=== PATIENT | female | born 1950 | race Caucasian/White ===

== ENCOUNTER → 2016-07-13 | Outpatient (REF) | payer MEDICARE, OTHER | LOC: M LAB REF 12:08 | PROVIDERS: ATTEND Nurse Practitioner Adult Health | DX: R10.2 Pelvic and perineal pain (principal) ==

== ENCOUNTER → 2016-08-11 | Outpatient (CLI) | payer MEDICARE, OTHER ==
--- NOTE | 2016-08-11 17:24 | REP ---
LEFT FOOT: REASON: Pain. PRIORS: None. FINDINGS: The joint spaces are symmetric and relatively well maintained. There is no evidence of acute fracture or destructive osseous lesion. Mild age related changes seen involving the midfoot. IMPRESSION: Negative. Signed by Leroy Dickey DO 08/11/2016 05:59 P
== END ==
LOC: M WUC 09:50
PROVIDERS: ATTEND Nurse Practitioner Adult Health
DX: M79.672 Pain in left foot (principal)

== ENCOUNTER → 2017-09-28 | Outpatient (CLI) | payer MEDICARE, OTHER ==
[2017-09-28 13:05] LABS: FERRITIN 43 NG/ML (8-252); IRON (FE) 65 UG/DL (50-170); PERCENT SATURATION 19.5 % (13.2-45.0); TOTAL IRON BINDING CAPACITY 333 UG/DL (250-450)
[2017-09-28 14:57] LABS: BASO # 0.1 10^3/uL (0.0-0.2); BASO % 1.1 % (0.0-1.0); EOS # 0.2 10^3/uL (0.0-0.50); EOS % 3.1 % (0.0-3.0); HEMATOCRIT 43.8 % (36.0-47.0); HEMOGLOBIN 14.8 g/dl (12.0-15.5); IMMATURE GRANULOCYTE % 0.2 % (0-3.0); LYMPH # 1.6 10^3/uL (1.5-4.5); LYMPH % 28.6 % (24.0-44.0); MEAN CORPUSCULAR HEMOGLOBIN 28.9 pg (27.0-33.0); MEAN CORPUSCULAR HGB CONC 33.8 g/dl (32.0-36.5); MEAN CORPUSCULAR VOLUME 85.5 fl (80.0-96.0); MONO # 0.4 10^3/uL (0.0-0.8); MONO % 6.3 % (0.0-5.0); NEUTROPHILS # 3.4 10^3/uL (1.8-7.7); NEUTROPHILS % 60.7 % (36.0-66.0); PLATELET COUNT, AUTOMATED 258 10^3/uL (150-450); RED BLOOD COUNT 5.12 10^6/uL (4.00-5.40); RED CELL DISTRIBUTION WIDTH 13.4 % (11.5-14.5); WHITE BLOOD COUNT 5.5 10^3/uL (4.0-10.0)
== END ==
LOC: M WUC 10:00
DX: Z01.818 Encounter for other preprocedural examination (principal); D63.8 Anemia in other chronic diseases classified elsewhere; M17.10 Unilateral primary osteoarthritis, unspecified knee; M25.561 Pain in right knee
CPT/HCPCS: 82040

== ENCOUNTER 2018-10-22 07:11 | Day surgery (SDC) | payer MEDICARE, OTHER ==
[~2018-10-22] VITALS: Ht 165.1 cm; Wt 67.0 kg
[~2018-10-22 07:11] MED LIST: CALC600T5 PO; CALCCAP4 PO; D3 S1CAP3 PO; EQL50CAP4 PO; LIDOCAINE 2% INJ 100 MG/5 ML SDV (FOR ANES.) As Ordered ONE; MAGN400C2 PO; NS 1,000 ML IV ONE; OMEGCAP9 PO; PROPOFOL 200 MG/20 ML VIAL As Ordered ONE; SYST1SOL4 OU; [UNRECOGNIZED DRUG - OTHER] PO
--- NOTE | 2018-10-22 08:27 | ROOR ---
Patient Name: Rodrigo Murray Procedure Date: 10/22/2018 8:01 AM Date of : 1950 Age: 68 Room: [facility] Gender: Female Note Status: Finalized Procedure: Colonoscopy Indications: High risk colon cancer surveillance: Personal history of non-advanced adenoma, Last colonoscopy: February 2013 Providers: Bruno Jean MD Referring MD: Fernanda Hdz NP Requesting Provider: Medicines: Monitored Anesthesia Care Complications: No immediate complications. Procedure: Pre-Anesthesia Assessment: - Prior to the procedure, a History and Physical was performed, and patient medications and allergies were reviewed. The patient is competent. The risks and benefits of the procedure and the sedation options and risks were discussed with the patient. All questions were answered and informed consent was obtained. Patient identification and proposed procedure were verified by the physician, the nurse and the lost charge card clerk in the procedure room. Mental Status Examination: alert and oriented. Airway Examination: normal oropharyngeal airway and neck mobility. CV Examination: regular rate and rhythm. Prophylactic Antibiotics: The patient does not require prophylactic antibiotics. Prior Anticoagulants: The patient has taken no previous anticoagulant or antiplatelet agents. ASA Grade Assessment: I - A normal, healthy patient. After reviewing the risks and benefits, the patient was deemed in satisfactory condition to undergo the procedure. The anesthesia plan was to use monitored anesthesia care (MAC). Immediately prior to administration of medications, the patient was re-assessed for adequacy to receive sedatives. The heart rate, respiratory rate, oxygen saturations, blood pressure, adequacy of pulmonary ventilation, and response to care were monitored throughout the procedure. The physical status of the patient was re-assessed after the procedure. The Colonoscope was introduced through the anus and advanced to the cecum, identified by appendiceal orifice and ileocecal valve. The colonoscopy was performed without difficulty. The patient tolerated the procedure well. The quality of the bowel preparation was excellent. Findings: The perianal and digital rectal examinations were normal. The colon (entire examined portion) appeared normal. Impression: - The entire examined colon is normal. - No specimens collected. Recommendation: - Discharge patient to home. - Resume previous diet. - Continue present medications. - Repeat colonoscopy in 5 years for surveillance. Bruno Jean MD Bruno Jean MD 10/22/2018 8:27:18 AM Electronically signed by Bruno Jean MD Number of Addenda: 0 Note Initiated On: 10/22/2018 8:01 AM Estimated Blood Loss: Estimated blood loss: none.
[2018-10-22 08:57] VITALS: BP 131/73
== END 2018-10-22 08:57 | disposition home or self-care (01) ==
LOC: M OPP 07:11
PROVIDERS: ATTEND Surgery
DX: Z12.11 Encounter for screening for malignant neoplasm of colon (principal); Z86.010 Personal history of colon polyps; Z88.2 Allergy status to sulfonamides

== ENCOUNTER → 2021-07-19 | Outpatient (CLI) | payer MEDICARE, OTHER ==
[~2021-07-19] MED LIST changes: -CALC600T5 PO; +CALC600T61 PO; -LIDOCAINE 2% INJ 100 MG/5 ML SDV (FOR ANES.) As Ordered ONE; -NS 1,000 ML IV ONE; -PROPOFOL 200 MG/20 ML VIAL As Ordered ONE
== END ==
LOC: M WUC 14:48
PROVIDERS: ATTEND Nurse Practitioner Adult Health
DX: M25.812 Other specified joint disorders, left shoulder (principal)

== ENCOUNTER → 2023-08-02 | Outpatient (REF) | payer MEDICARE ==
[~2023-08-02] MED LIST changes: +DIPH-448 PO; -EQL50CAP4 PO
[2023-08-02 13:35] LABS: HEMATOCRIT 38.4 % (36.0-47.0)
[2023-08-02 13:38] LABS: FERRITIN 287.1 NG/ML (7.3-270.7)
[2023-08-02 13:45] LABS: TOTAL IRON BINDING CAPACITY 274 UG/DL (250-425)
[2023-08-02 13:47] LABS: IRON (FE) 32 UG/DL (50-170); PERCENT SATURATION 11.7 % (13.2-45.0)
[2023-08-02 14:45] LABS: HEPATITIS B CORE ANTIBODY IGM NEGATIVE (NEGATIVE)
[2023-08-02 14:46] LABS: HEPATITIS C VIRUS ABY INDEX < 0.02 INDEX (<0.8)
[2023-08-03 14:09] LABS: ANTINUCLEAR ANTIBODIES DIRECT Negative (Negative)
== END ==
LOC: M LAB REF 11:50
PROVIDERS: ATTEND Nurse Practitioner Adult Health
DX: R94.5 Abnormal results of liver function studies (principal); D50.9 Iron deficiency anemia, unspecified

== ENCOUNTER → 2023-08-08 | Outpatient (REF) | payer MEDICARE ==
[2023-08-08 13:39] LABS: LIPASE 23 U/L (12-53)
[2023-08-08 13:41] LABS: AMYLASE 25 U/L (30-118)
== END ==
LOC: M LAB REF 12:28
PROVIDERS: ATTEND Nurse Practitioner Adult Health
DX: R94.5 Abnormal results of liver function studies (principal)

== ENCOUNTER → 2023-08-14 | Outpatient (CLI) | payer MEDICARE | LOC: M WUC 12:02 | PROVIDERS: ATTEND Nurse Practitioner Adult Health | DX: R06.02 Shortness of breath (principal) ==

== ENCOUNTER → 2023-08-29 | Outpatient (CLI) | payer MEDICARE | LOC: M WUC 13:42 | PROVIDERS: ATTEND Nurse Practitioner Adult Health | DX: R06.02 Shortness of breath (principal) ==

== ENCOUNTER → 2023-09-13 | Outpatient (REF) | payer MEDICARE | LOC: M LAB REF 12:45 | PROVIDERS: ATTEND Nurse Practitioner Adult Health | DX: R94.5 Abnormal results of liver function studies (principal) ==

== ENCOUNTER → 2023-11-21 | Outpatient (CLI) | payer MEDICARE ==
[2023-11-21 14:56] LABS: RHEUMATOID FACTOR QUANT < 3.5 IU/ML (<14)
[2023-11-21 15:09] LABS: HEPATITIS B SURFACE ANTIGEN NEGATIVE (NEGATIVE)
[2023-11-21 15:30] LABS: HEPATITIS C VIRUS ABY INDEX 0.03 INDEX (<0.8)
[2023-11-21 15:31] LABS: HEPATITIS B CORE ANTIBODY IGM NEGATIVE (NEGATIVE)
[2023-11-23 00:52] LABS: CYCLIC CITRULLINATED PEPTIDE < 16 UNITS (<20)
[2023-11-23 11:03] LABS: ANA PATTERN Nuclear, Speckled (NEGATIVE); ANA SCREEN, IFA POSITIVE (NEGATIVE); ANA TITER 1:40 titer (<1:40)
[2023-11-24 18:22] LABS: LYME TOTAL ANTIBODY CIA <= 0.90 Index (<=0.90)
== END ==
LOC: M PLAIMG 12:08
PROVIDERS: ATTEND Nurse Practitioner Adult Health
DX: Z01.89 Encounter for other specified special examinations (principal); M19.031 Primary osteoarthritis, right wrist

== ENCOUNTER → 2024-01-10 | Outpatient (REF) | payer MEDICARE ==
[2024-01-14 14:14] LABS: FERRITIN 110.2 NG/ML (7.3-270.7)
== END ==
LOC: M LAB REF 13:35
PROVIDERS: ATTEND Nurse Practitioner Adult Health
DX: R71.8 Other abnormality of red blood cells (principal)

== ENCOUNTER → 2024-02-22 | Outpatient (REF) | payer MEDICARE ==
[2024-02-22 15:07] LABS: HEPATITIS B SURFACE ANTIBODY NEGATIVE (POSITIVE)
[2024-02-22 15:19] LABS: HEPATITIS B SURFACE ANTIGEN NEGATIVE (NEGATIVE)
[2024-02-22 15:41] LABS: HEPATITIS B CORE ANTIBODY IGM NEGATIVE (NEGATIVE); HEPATITIS C VIRUS ABY INDEX < 0.02 INDEX (<0.8)
== END ==
LOC: M LAB REF 12:26
PROVIDERS: ATTEND Nurse Practitioner Adult Health
DX: M19.90 Unspecified osteoarthritis, unspecified site (principal); Z79.899 Other long term (current) drug therapy; Z11.59 Encounter for screening for other viral diseases

== ENCOUNTER → 2024-07-14 | Outpatient (CLI) | payer MEDICARE ==
[2024-07-14 13:53] LABS: BLOOD UREA NITROGEN 12 MG/DL (9-23); CALCIUM LEVEL 10.1 MG/DL (8.3-10.6); CARBON DIOXIDE LEVEL 31 MMOL/L (20-31); CHLORIDE LEVEL 104 MMOL/L (98-107); CREATININE FOR GFR 0.69 MG/DL (0.55-1.30); GLOMERULAR FILTRATION RATE > 60.0 (>39); GLUCOSE, FASTING 85 MG/DL (74-106); SODIUM LEVEL 142 MMOL/L (136-145)
== END ==
LOC: M LAB 12:15
PROVIDERS: ATTEND Nurse Practitioner Family
DX: I72.2 Aneurysm of renal artery (principal)

== ENCOUNTER → 2024-07-17 | Outpatient (CLI) | payer MEDICARE ==
[~2024-07-17] MED LIST changes: +ISOVUE-370 76% 100ML VIAL As Ordered ONE
== END ==
LOC: M RAD 13:26
PROVIDERS: ATTEND Nurse Practitioner Family
DX: I72.2 Aneurysm of renal artery (principal)
CPT/HCPCS: 71275; 74174; Q9967

== ENCOUNTER → 2024-07-28 | Outpatient (REF) | payer MEDICARE ==
[~2024-07-28] MED LIST changes: -ISOVUE-370 76% 100ML VIAL As Ordered ONE
== END ==
LOC: M LAB REF 12:19
PROVIDERS: ATTEND Nurse Practitioner Adult Health
DX: R71.8 Other abnormality of red blood cells (principal)

== ENCOUNTER 2024-12-12 11:23 | Emergency (ER) | payer MEDICARE ==
[~2024-12-12] VITALS: Ht 165.1 cm; Wt 66.1 kg
[2024-12-12 11:36] VITALS: TEMP 98.1
[2024-12-12 12:10] LABS: BASO # 0.1 10^3/uL (0.0-0.2); BASO % 0.5 % (0.0-1.0); EOS # 0.0 10^3/uL (0.0-0.5); EOS % 0.4 % (0.0-3.0); LYMPH # 1.1 10^3/uL (1.5-5.0); LYMPH % 10.7 % (24.0-44.0); MONO # 1.0 10^3/uL (0.0-0.8); MONO % 10.3 % (2.0-8.0); NEUTROPHILS # 7.8 10^3/uL (1.5-8.5); NEUTROPHILS % 77.9 % (36.0-66.0); PLATELET COUNT, AUTOMATED 203 10^3/uL (150-450)
[2024-12-12 12:29] LABS: CK-MB VALUE MASS 2.2 NG/ML (<3.6)
[2024-12-12 12:31] LABS: ALT/SGPT 35.0 U/L (7.0-40); AST/SGOT 34.0 U/L (<34); CALCIUM LEVEL 10.1 MG/DL (8.3-10.6); CARBON DIOXIDE LEVEL 31.0 MMOL/L (20-31); CHLORIDE LEVEL 100.0 MMOL/L (98-107); CPK CREATINE PHOSPHOKINASE 61.0 U/L (34-145); CREATININE FOR GFR 0.8 MG/DL (0.55-1.30); GLOMERULAR FILTRATION RATE 76.3 (>39); MB/CK RELATIVE INDEX 3.6 (< OR =4); POTASSIUM SERUM 4.7 MMOL/L (3.5-5.1); SODIUM LEVEL 141.0 MMOL/L (136-145)
[2024-12-12] MEDS: METOPROLOL 5 MG/5 ML VIAL IV SCH (12:33)
[2024-12-12] MEDS: METOPROLOL TART 25 MG TABLET PO ONE (12:37)
[2024-12-12 12:48] VITALS: BP 152/99
[2024-12-12 12:48] LABS: MAGNESIUM LEVEL 1.8 MG/DL (1.8-2.4)
[2024-12-12 12:50] LABS: INR 0.9
[2024-12-12 12:52] LABS: FREE T4 1.09 NG/DL (0.89-1.76)
[2024-12-12] MEDS ORDERED: ISOVUE-370 76% 100 ML VIAL As Ordered ONE (13:29)
[2024-12-12 13:33] LABS: CK-MB VALUE MASS 2.0 NG/ML (<3.6)
[2024-12-12 13:41] LABS: CPK CREATINE PHOSPHOKINASE 60.0 U/L (34-145); MB/CK RELATIVE INDEX 3.33 (< OR =4)
[2024-12-12] MEDS ORDERED: D3 S1CAP3 PO (14:43)
[2024-12-12] MEDS ORDERED: METH2.5T48 PO (14:43)
[2024-12-12] MEDS ORDERED: IBAN150T10 PO (14:43)
[2024-12-12] MEDS ORDERED: LEUC5TAB PO (14:43)
[2024-12-12] MEDS ORDERED: DULO1CAP6 PO (14:43)
[2024-12-12 14:45] VITALS: BP 124/73; O2SAT 96
[2024-12-12] MEDS ORDERED: HOME MED LIST COMPLETE! XX SCH (14:50)
[2024-12-12] MEDS ORDERED: METO25TA4 PO (14:52)
[2024-12-12] MEDS: APIXABAN 5 MG TAB PO ONE (14:52)
[2024-12-12] MEDS ORDERED: ELIQ5TAB PO (14:52)
== END 2024-12-12 15:05 | disposition home or self-care (01) ==
LOC: M ED 11:23
DX: I48.91 Unspecified atrial fibrillation (principal); R07.9 Chest pain, unspecified; J91.8 Pleural effusion in other conditions classified elsewhere; F10.10 Alcohol abuse, uncomplicated; Z88.2 Allergy status to sulfonamides
CPT/HCPCS: 71045; 71275; 80048; 80076; 82550; 82553; 83690; 83735; 84439; 84443; 84484; 85025; 85610; 85730; 93005; 93041; 94760; 96374; 99285; J0616; Q9967